=== PATIENT | female | born 1970 | race Caucasian/White ===

== ENCOUNTER 2017-05-27 10:30 | Emergency (ER) | payer MEDICAID ==
[~2017-05-27] VITALS: Ht 167.6 cm; Wt 85.0 kg
[2017-05-27] MEDS ORDERED: SODIUM CHLORIDE 0.9% 1,000 ML IV ONE (11:04)
[2017-05-27] MEDS ORDERED: KETOROLAC 30MG/ML VIAL IV ONE (11:15)
[2017-05-27 12:02] LABS: CLARITY URINE TURBID (CLEAR); COLOR URINE DARK YELLOW (YELLOW); KETONES URINE 1+ (NEGATIVE); LEUKOCYTE ESTERASE URINE 2+ (NEGATIVE); NITRITE URINE POSITIVE (NEGATIVE); OCCULT BLOOD URINE NEGATIVE (NEGATIVE); PH URINE 8.5 (4.5-8.0); PROTEIN URINE TRACE (NEGATIVE); SPECIFIC GRAVITY URINE 1.033 (1.005-1.030)
[2017-05-27 12:21] LABS: *AMPHETAMINES SCREEN URINE NEGATIVE (NEGATIVE); *BARBITURATES SCREEN URINE NEGATIVE (NEGATIVE); *BENZODIAZEPINES SCREEN URINE NEGATIVE (NEGATIVE); *COCAINE SCREEN URINE NEGATIVE (NEGATIVE); CANNABINOID URINE SCREEN NEGATIVE (NEGATIVE); METHADONE URINE SCREEN NEGATIVE (NEGATIVE); PHENCYCLIDINE URINE SCREEN NEGATIVE (NEGATIVE)
[2017-05-27 12:26] LABS: BASOPHILS % 0.5 % (0.0-2.0); EOSINOPHILS % 0.2 % (0.0-5.0); LYMPHOCYTES % 10.4 % (20.0-50.0); MEAN CORPUSCULAR HEMOGLOBIN 25.4 pg (28.0-32.0); MEAN CORPUSCULAR VOLUME 78.5 fL (81.0-99.0); MEAN PLATELET VOLUME 8.2 fl (7.4-10.4); NEUTROPHILS % 80.9 % (40.0-76.0); PLATELET 314 x1000/uL (130-400); RED BLOOD CELL COUNT 4.71 mill/uL (4.2-5.4); RED CELL DISTRIBUTION WIDTH 16.7 % (11.6-14.6)
[2017-05-27 12:32] LABS: INR 1.2; PROTHROMBIN TIME 12.5 sec (9.4-11.6)
[2017-05-27 12:34] LABS: OPIATES URINE SCREEN PRESUMTIVE POSITIVE (NEGATIVE)
[2017-05-27 12:40] LABS: CARBON DIOXIDE 26 mEq/L (21-32); CHLORIDE 104 mEq/L (98-107)
[2017-05-27] MEDS ORDERED: MORPHINE SULFATE 2 MG/ML CPJ (NOT FOR IM USE) IV ONE ×2 (12:45→14:30)
[2017-05-27 12:54] LABS: HCG SCREEN NEGATIVE
[2017-05-27] MEDS ORDERED: TRAMADOL 50MG TABLET PO ONE (14:00)
[2017-05-27] MEDS ORDERED: CEFTRIAXONE SODIUM 250 MG/VIAL IM ONE (14:00)
[2017-05-27 14:41] VITALS: BP 110/64
== END 2017-05-27 16:40 | disposition home or self-care (01) ==
LOC: ER 10:54
DX: N39.0 Urinary tract infection, site not specified (principal); M79.604 Pain in right leg; M79.605 Pain in left leg; G82.20 Paraplegia, unspecified; Z76.5 Malingerer [conscious simulation]; Z93.6 Other artificial openings of urinary tract status; Z86.718 Personal history of other venous thrombosis and embolism
CPT/HCPCS: 36415; 80053; 80305; 81001; 84703; 85025; 85610; 87086; 93970; 96361; 96372; 96374; 96375; 96376; 99285; J0696; J1885; J2270; J7030

== ENCOUNTER 2018-12-23 16:25 | Emergency (ER) | payer MEDICAID ==
[~2018-12-23] VITALS: Ht 160 cm; Wt 73.0 kg
[~2018-12-23 16:25] MED LIST: BACL20TA MT; DOCU-272 PO; DULO60CA63 MT; GABA-290 MT; OXYC-93 MT; RIVA20TA PO
[2018-12-23] MEDS ORDERED: MORPHINE SULFATE 4 MG/ML CPJ (NOT FOR IM USE) IV STA (18:44)
[2018-12-23] MEDS ORDERED: SODIUM CHLORIDE 0.9% 1,000 ML IV ONE (18:44)
[2018-12-23] MEDS ORDERED: ONDANSETRON HCL 4MG/2ML INJ IV STA (18:44)
[2018-12-23 19:16] LABS: BASOPHILS % 1.1 % (0.0-2.0); EOSINOPHILS % 2.8 % (0.0-5.0); LYMPHOCYTES % 18.7 % (20.0-50.0); MEAN CORPUSCULAR VOLUME 77.1 fL (81.0-99.0); MEAN PLATELET VOLUME 8.4 fl (7.4-10.4); NEUTROPHILS % 69.4 % (40.0-76.0); PLATELET 246 x1000/uL (130-400); RED BLOOD CELL COUNT 4.42 mill/uL (4.2-5.4); RED CELL DISTRIBUTION WIDTH 17.6 % (11.6-14.6)
[2018-12-23 19:20] LABS: CHLORIDE 106 mEq/L (98-107)
[2018-12-23 19:21] LABS: INR 1.1; PROTHROMBIN TIME 11.6 sec (9.6-11.0)
[2018-12-23 19:27] LABS: CLARITY URINE CLOUDY (CLEAR); COLOR URINE YELLOW (YELLOW); KETONES URINE NEGATIVE (NEGATIVE); LEUKOCYTE ESTERASE URINE 3+ (NEGATIVE); NITRITE URINE NEGATIVE (NEGATIVE); OCCULT BLOOD URINE 2+ (NEGATIVE); PH URINE 6.5 (4.5-8.0); PROTEIN URINE TRACE (NEGATIVE); SPECIFIC GRAVITY URINE 1.015 (1.005-1.030)
[2018-12-23] MEDS ORDERED: DIPHENHYDRAMINE 25MG CAPSULE PO ONE (19:45)
[2018-12-23 20:57] VITALS: BP 123/71
== END 2018-12-23 20:58 | disposition home or self-care (01) ==
LOC: ER 16:25
DX: N30.90 Cystitis, unspecified without hematuria (principal); G82.20 Paraplegia, unspecified; G89.29 Other chronic pain; R00.0 Tachycardia, unspecified; Z98.890 Other specified postprocedural states; Z79.899 Other long term (current) drug therapy
CPT/HCPCS: 36415; 80053; 81003; 83605; 83690; 85025; 85610; 87040; 87077; 87086; 87186; 96374; 96375; 99283; J2270; J2405; J7030; Q0163; A4315

== ENCOUNTER 2019-02-18 13:50 | Emergency (ER) | payer MEDICAID ==
[~2019-02-18] VITALS: Ht 167.6 cm; Wt 90.0 kg
[~2019-02-18 13:50] MED LIST changes: -DULO60CA63 MT; +DULO60CA64 MT
[2019-02-18] MEDS ORDERED: KETOROLAC 30MG/ML VIAL IV STA (15:27)
[2019-02-18 16:03] LABS: CHLORIDE 108 mEq/L (98-107)
[2019-02-18 16:05] LABS: BASOPHILS % 0.4 % (0.0-2.0); EOSINOPHILS % 1.5 % (0.0-5.0); HEMOGLOBIN. 12.4 g/dL (12.0-16.0); LYMPHOCYTES % 13.8 % (20.0-50.0); MEAN CORPUSCULAR HEMOGLOBIN 25.9 pg (28.0-32.0); MEAN CORPUSCULAR VOLUME 79.3 fL (81.0-99.0); MONOCYTES % 7.3 % (2.0-8.0); PLATELET 190 x1000/uL (130-400); RED BLOOD CELL COUNT 4.79 mill/uL (4.2-5.4); RED CELL DISTRIBUTION WIDTH 16.3 % (11.6-14.6)
[2019-02-18 19:37] VITALS: BP 142/59
== END 2019-02-18 19:38 | disposition home or self-care (01) ==
LOC: ER 13:50
DX: M79.2 Neuralgia and neuritis, unspecified (principal); I11.9 Hypertensive heart disease without heart failure; Z88.6 Allergy status to analgesic agent; Z99.3 Dependence on wheelchair
CPT/HCPCS: 36415; 70450; 80053; 85025; 93970; 96374; 99284; J1885

== ENCOUNTER 2019-02-20 15:44 | Emergency (ER) | payer MEDICAID ==
[~2019-02-20] VITALS: Ht 170.2 cm; Wt 86.0 kg
[2019-02-20] MEDS ORDERED: KETOROLAC 60MG/2ML VIAL IM ONE (19:30)
[2019-02-20] MEDS ORDERED: GABAPENTIN 300MG CAPSULE PO ONE (19:30)
[2019-02-20] MEDS ORDERED: MORPHINE SULFATE 10 MG/ML CPJ IM ONE (20:15)
[2019-02-20 22:30] VITALS: BP 135/76
== END 2019-02-20 22:30 | disposition home or self-care (01) ==
LOC: ER 15:44
DX: M79.669 Pain in unspecified lower leg (principal); G62.9 Polyneuropathy, unspecified; F11.20 Opioid dependence, uncomplicated; I10 Essential (primary) hypertension; Z98.890 Other specified postprocedural states; Z79.899 Other long term (current) drug therapy; Z88.6 Allergy status to analgesic agent
CPT/HCPCS: 96372; 99283; J1885; J2270; Z7610

== ENCOUNTER 2019-02-27 18:03 | Emergency (ER) | payer MEDICAID ==
[~2019-02-27] VITALS: Ht 167.6 cm; Wt 101.0 kg
[2019-02-27] MEDS ORDERED: DIPHENHYDRAMINE 50MG/ML VIAL IV ONE (22:00)
[2019-02-27] MEDS ORDERED: MORPHINE SULFATE 10 MG/ML CPJ IV ONE (22:00)
[2019-02-27] MEDS ORDERED: KETOROLAC 30MG/ML VIAL IV ONE (22:00)
[2019-02-27 22:42] LABS: CLARITY URINE CLEAR (CLEAR); COLOR URINE YELLOW (YELLOW); KETONES URINE NEGATIVE (NEGATIVE); LEUKOCYTE ESTERASE URINE 1+ (NEGATIVE); NITRITE URINE POSITIVE (NEGATIVE); OCCULT BLOOD URINE NEGATIVE (NEGATIVE); PROTEIN URINE NEGATIVE (NEGATIVE); SPECIFIC GRAVITY URINE 1.008 (1.005-1.030)
[2019-02-28 00:31] VITALS: BP 105/65
== END 2019-02-28 01:48 | disposition home or self-care (01) ==
LOC: ER 18:03
DX: G89.29 Other chronic pain (principal); I11.9 Hypertensive heart disease without heart failure; G82.20 Paraplegia, unspecified; Z88.6 Allergy status to analgesic agent
CPT/HCPCS: 81003; 87077; 87086; 87186; 96374; 96375; 99283; J1200; J1885; J2270

== ENCOUNTER 2019-03-23 10:32 | Inpatient (IN) | payer MEDICAID ==
[~2019-03-23] VITALS: Ht 160 cm; Wt 92.5 kg
[2019-03-23] MEDS ORDERED: ONDANSETRON HCL 4MG/2ML INJ IV STA (11:13)
[2019-03-23] MEDS ORDERED: MORPHINE SULFATE 4 MG/ML CPJ (NOT FOR IM USE) IV STA (11:13)
[2019-03-23] MEDS ORDERED: DIPHENHYDRAMINE 25MG CAPSULE PO ONE (11:15)
[2019-03-23 11:59] LABS: CHLORIDE 106 mEq/L (98-107)
[2019-03-23 12:00] LABS: BASOPHILS % 0.5 % (0.0-2.0); EOSINOPHILS % 0.3 % (0.0-5.0); HEMATOCRIT. 37.4 % (36.0-48.0); HEMOGLOBIN. 12.4 g/dL (12.0-16.0); LYMPHOCYTES % 12.3 % (20.0-50.0); MEAN CORPUSCULAR HEMOGLOBIN 26.2 pg (28.0-32.0); MEAN CORPUSCULAR VOLUME 78.9 fL (81.0-99.0); MEAN PLATELET VOLUME 8.9 fl (7.4-10.4); MONOCYTES % 6.5 % (2.0-8.0); NEUTROPHILS % 80.4 % (40.0-76.0); PLATELET 319 x1000/uL (130-400); RED BLOOD CELL COUNT 4.74 mill/uL (4.2-5.4); RED CELL DISTRIBUTION WIDTH 15.6 % (11.6-14.6)
[2019-03-23] MEDS ORDERED: KETOROLAC 15MG/ML VIAL IV ONE (12:30)
[2019-03-23] MEDS ORDERED: MORPHINE SULFATE 4 MG/ML CPJ (NOT FOR IM USE) IV ONE (12:30)
[2019-03-23 12:54] LABS: CLARITY URINE CLOUDY (CLEAR); COLOR URINE YELLOW (YELLOW); KETONES URINE TRACE (NEGATIVE); LEUKOCYTE ESTERASE URINE 2+ (NEGATIVE); NITRITE URINE NEGATIVE (NEGATIVE); OCCULT BLOOD URINE 2+ (NEGATIVE); PROTEIN URINE 2+ (NEGATIVE); SPECIFIC GRAVITY URINE 1.007 (1.005-1.030)
[2019-03-23] MEDS ORDERED: LORAZEPAM 2MG/ML CPJ IV ONE (13:15)
[2019-03-23] MEDS ORDERED: CEFTRIAXONE 2 G PREMIX 50 ML IV ONE (13:45)
[2019-03-23 16:40] VITALS: BP 125/86
[2019-03-23] MEDS ORDERED: CLON2TAB21 PO (16:40)
[2019-03-23] MEDS ORDERED: INFLUENZA VIRUS VACCINE(AFLURIA) 0.5ML SYR IM ONE (17:30)
[2019-03-23] MEDS ORDERED: ONDANSETRON HCL 4MG/2ML INJ IV PRN (18:15)
[2019-03-23] MEDS: HYDROMORPHONE HCL/PF 2MG/ML CPJ IV PRN ×2 (18:29→22:27)
[2019-03-23] MEDS: SODIUM CHLORIDE 0.9% 1,000 ML IV SCH (18:40)
[2019-03-23] MEDS: DIPHENHYDRAMINE 50MG/ML VIAL IV PRN (18:40)
[2019-03-23] MEDS ORDERED: POTASSIUM CHLORIDE 20MEQ TABLET SR PO SCH (19:30)
[2019-03-23 20:00] VITALS: BP 129/81
[2019-03-23] MEDS: RIVAROXABAN 20 MG TABLET PO SCH (20:06)
[2019-03-23] MEDS: DOCUSATE SODIUM 100MG CAPSULE PO SCH (20:07)
[2019-03-23] MEDS ORDERED: CLONAZEPAM 1MG TABLET PO SCH (21:00)
[2019-03-23] MEDS: GABAPENTIN 300MG CAPSULE PO SCH (21:33)
[2019-03-23] MEDS: LORAZEPAM 1MG TABLET PO PRN (21:34)
[2019-03-23] MEDS: BACLOFEN 10MG TABLET PO SCH (21:34)
[2019-03-24] VITALS: BP 103/60
[2019-03-24] MEDS: DIPHENHYDRAMINE 50MG/ML VIAL IV PRN ×4 (00:49→22:32)
[2019-03-24] MEDS: HYDROMORPHONE HCL/PF 2MG/ML CPJ IV PRN ×6 (02:30→22:25)
[2019-03-24 04:00] VITALS: BP 94/54
[2019-03-24] MEDS: GABAPENTIN 300MG CAPSULE PO SCH ×3 (06:26→21:50)
[2019-03-24] MEDS: BACLOFEN 10MG TABLET PO SCH ×3 (06:26→21:50)
[2019-03-24] MEDS: DULOXETINE HCL 60MG DR CAPSULE PO SCH (08:14)
[2019-03-24] MEDS: CEFTRIAXONE 1,000 MG in DEXTROSE 5% WATER 50 ML IV SCH (08:14)
[2019-03-24] MEDS: DOCUSATE SODIUM 100MG CAPSULE PO SCH ×2 (08:14→16:31)
[2019-03-24] MEDS ORDERED: ENOXAPARIN 40MG/0.4ML SYR SUBCUT SCH (09:00)
[2019-03-24 09:19] LABS: BASOPHILS % 1.1 % (0.0-2.0); EOSINOPHILS % 3.9 % (0.0-5.0); HEMATOCRIT. 34.8 % (36.0-48.0); HEMOGLOBIN. 11.4 g/dL (12.0-16.0); LYMPHOCYTES % 25.6 % (20.0-50.0); MEAN CORPUSCULAR HEMOGLOBIN 26.2 pg (28.0-32.0); MEAN CORPUSCULAR VOLUME 79.9 fL (81.0-99.0); MEAN PLATELET VOLUME 8.5 fl (7.4-10.4); NEUTROPHILS % 58.4 % (40.0-76.0); PLATELET 275 x1000/uL (130-400); RED BLOOD CELL COUNT 4.35 mill/uL (4.2-5.4)
[2019-03-24 09:41] LABS: CHLORIDE 111 mEq/L (98-107)
[2019-03-24 16:00] VITALS: BP 100/61
[2019-03-24] MEDS: RIVAROXABAN 20 MG TABLET PO SCH (16:32)
[2019-03-24] MEDS ORDERED: OXYC20TA71 PO (16:46)
[2019-03-24 20:00] VITALS: BP 125/86
[2019-03-25] VITALS: BP 101/61
[2019-03-25] MEDS: HYDROMORPHONE HCL/PF 2MG/ML CPJ IV PRN ×5 (03:46→21:16)
[2019-03-25 04:00] VITALS: BP 108/50
[2019-03-25] MEDS: BACLOFEN 10MG TABLET PO SCH ×3 (06:04→21:13)
[2019-03-25] MEDS: LORAZEPAM 1MG TABLET PO PRN (06:04)
[2019-03-25] MEDS: GABAPENTIN 300MG CAPSULE PO SCH ×3 (06:04→21:13)
[2019-03-25 08:00] VITALS: BP 108/68
[2019-03-25] MEDS: CEFTRIAXONE 1,000 MG in DEXTROSE 5% WATER 50 ML IV SCH (08:27)
[2019-03-25] MEDS: DULOXETINE HCL 60MG DR CAPSULE PO SCH (08:27)
[2019-03-25] MEDS: DOCUSATE SODIUM 100MG CAPSULE PO SCH ×2 (08:27→17:00)
[2019-03-25 12:00] VITALS: BP 116/50
[2019-03-25] MEDS ORDERED: ACETAMINOPHEN 325MG TABLET PO PRN (15:00)
[2019-03-25] MEDS: DIPHENHYDRAMINE 50MG/ML VIAL IV PRN ×2 (15:09→21:15)
[2019-03-25 16:00] VITALS: BP 138/72
[2019-03-25] MEDS: RIVAROXABAN 20 MG TABLET PO SCH (17:11)
[2019-03-25] MEDS: CEFAZOLIN 1000MG PREMIX 50 ML IV SCH (18:32)
[2019-03-25 20:00] VITALS: BP 125/71
[2019-03-26] VITALS: BP 98/45
[2019-03-26] MEDS: SODIUM CHLORIDE 0.9% 1,000 ML IV SCH ×2 (00:29→17:24)
[2019-03-26] MEDS: HYDROMORPHONE HCL/PF 2MG/ML CPJ IV PRN ×6 (01:21→22:30)
[2019-03-26] MEDS: CEFAZOLIN 1000MG PREMIX 50 ML IV SCH ×3 (01:31→17:27)
[2019-03-26] MEDS: DIPHENHYDRAMINE 50MG/ML VIAL IV PRN ×5 (03:14→21:13)
[2019-03-26 04:00] VITALS: BP 147/58
[2019-03-26] MEDS: GABAPENTIN 300MG CAPSULE PO SCH ×3 (05:22→21:07)
[2019-03-26] MEDS: BACLOFEN 10MG TABLET PO SCH ×3 (05:22→21:07)
[2019-03-26] MEDS: DOCUSATE SODIUM 100MG CAPSULE PO SCH ×2 (08:33→17:00)
[2019-03-26] MEDS: DULOXETINE HCL 60MG DR CAPSULE PO SCH (08:33)
[2019-03-26 14:21] LABS: BASOPHILS % 1.1 % (0.0-2.0); EOSINOPHILS % 4.5 % (0.0-5.0); HEMATOCRIT. 36.5 % (36.0-48.0); HEMOGLOBIN. 11.7 g/dL (12.0-16.0); LYMPHOCYTES % 15.5 % (20.0-50.0); MEAN CORPUSCULAR HEMOGLOBIN 25.9 pg (28.0-32.0); MEAN CORPUSCULAR VOLUME 80.7 fL (81.0-99.0); MEAN PLATELET VOLUME 8.9 fl (7.4-10.4); MONOCYTES % 8.5 % (2.0-8.0); NEUTROPHILS % 70.4 % (40.0-76.0); PLATELET 261 x1000/uL (130-400); RED BLOOD CELL COUNT 4.53 mill/uL (4.2-5.4); RED CELL DISTRIBUTION WIDTH 16.5 % (11.6-14.6)
[2019-03-26 14:37] LABS: CHLORIDE 109 mEq/L (98-107)
[2019-03-26] MEDS: RIVAROXABAN 20 MG TABLET PO SCH (17:26)
[2019-03-26 20:00] VITALS: BP 112/64
[2019-03-27] VITALS: BP 116/68
[2019-03-27] MEDS: CEFAZOLIN 1000MG PREMIX 50 ML IV SCH ×2 (02:41→09:59)
[2019-03-27] MEDS: HYDROMORPHONE HCL/PF 2MG/ML CPJ IV PRN ×3 (02:41→11:32)
[2019-03-27] MEDS: DIPHENHYDRAMINE 50MG/ML VIAL IV PRN ×2 (03:34→09:59)
[2019-03-27 04:00] VITALS: BP 104/60
[2019-03-27] MEDS: GABAPENTIN 300MG CAPSULE PO SCH ×2 (06:04→13:13)
[2019-03-27] MEDS: BACLOFEN 10MG TABLET PO SCH ×2 (06:04→13:13)
[2019-03-27 08:00] VITALS: BP 113/67
[2019-03-27] MEDS: DULOXETINE HCL 60MG DR CAPSULE PO SCH (09:58)
[2019-03-27] MEDS: DOCUSATE SODIUM 100MG CAPSULE PO SCH (09:58)
[2019-03-27 12:00] VITALS: BP 107/61
[2019-03-27] MEDS: LORAZEPAM 1MG TABLET PO PRN (13:50)
[2019-03-27 15:32] VITALS: BP 107/61
[2019-03-27] MEDS: SODIUM CHLORIDE 0.9% 1,000 ML IV SCH (15:38)
[2019-03-27 16:00] VITALS: BP 101/48
== END 2019-03-27 16:43 | disposition home health service (06) | DRG 463 ==
LOC: ER 10:32 → 6EST 14:07 → EDBEDREQTM 14:13 → ENRESERV 15:31
PROVIDERS: ADMIT Internal Medicine; ATTEND Internal Medicine
DX: N39.0 Urinary tract infection, site not specified (principal); G82.20 Paraplegia, unspecified; G62.9 Polyneuropathy, unspecified; E87.6 Hypokalemia; N31.9 Neuromuscular dysfunction of bladder, unspecified; M79.604 Pain in right leg; M79.605 Pain in left leg; I10 Essential (primary) hypertension; B96.1 Klebsiella pneumoniae [K. pneumoniae] as the cause of diseases classified elsewhere; G89.29 Other chronic pain; Z88.6 Allergy status to analgesic agent; Z86.718 Personal history of other venous thrombosis and embolism; Z98.891 History of uterine scar from previous surgery; Z79.01 Long term (current) use of anticoagulants; Z79.899 Other long term (current) drug therapy; Z76.5 Malingerer [conscious simulation]
CPT/HCPCS: 36415; 51702; 72141; 72148; 80048; 81003; 87077; 87186; 90686; 96365; 96375; 96376; 97162; 99285; J0690; J0696; J1170; J1200; J1885; J2060; J2270; J2405; J7030; J7060; Q0163

== ENCOUNTER 2019-05-08 12:10 | Emergency (ER) | payer MEDICAID ==
[~2019-05-08] VITALS: Ht 160 cm; Wt 87.0 kg
[~2019-05-08 12:10] MED LIST changes: +CLON2TAB21 PO; +OXYC20TA71 PO
[2019-05-08] MEDS ORDERED: MORPHINE SULFATE 10 MG/ML CPJ IV ONE (13:15)
[2019-05-08] MEDS ORDERED: ONDANSETRON HCL 4MG/2ML INJ IV ONE (13:15)
[2019-05-08] MEDS ORDERED: DIPHENHYDRAMINE 50MG/ML VIAL IV ONE (13:15)
[2019-05-08 13:30] LABS: CLARITY URINE CLEAR (CLEAR); COLOR URINE YELLOW (YELLOW); KETONES URINE NEGATIVE (NEGATIVE); LEUKOCYTE ESTERASE URINE NEGATIVE (NEGATIVE); NITRITE URINE POSITIVE (NEGATIVE); OCCULT BLOOD URINE 3+ (NEGATIVE); PROTEIN URINE NEGATIVE (NEGATIVE); SPECIFIC GRAVITY URINE 1.009 (1.005-1.030)
[2019-05-08 14:12] LABS: BASOPHILS % 1.2 % (0.0-2.0); EOSINOPHILS % 3.6 % (0.0-5.0); HEMATOCRIT. 35.5 % (36.0-48.0); HEMOGLOBIN. 11.7 g/dL (12.0-16.0); LYMPHOCYTES % 26.3 % (20.0-50.0); MEAN CORPUSCULAR HEMOGLOBIN 26.5 pg (28.0-32.0); MEAN CORPUSCULAR VOLUME 80.3 fL (81.0-99.0); MEAN PLATELET VOLUME 8.5 fl (7.4-10.4); NEUTROPHILS % 60.9 % (40.0-76.0); PLATELET 202 x1000/uL (130-400); RED BLOOD CELL COUNT 4.42 mill/uL (4.2-5.4)
[2019-05-08 14:20] LABS: CHLORIDE 106 mEq/L (98-107)
[2019-05-08 14:22] LABS: *AMPHETAMINES SCREEN URINE NEGATIVE (NEGATIVE); *BARBITURATES SCREEN URINE NEGATIVE (NEGATIVE); *COCAINE SCREEN URINE NEGATIVE (NEGATIVE)
[2019-05-08 14:23] LABS: CANNABINOID URINE SCREEN NEGATIVE (NEGATIVE); METHADONE URINE SCREEN NEGATIVE (NEGATIVE); OPIATES URINE SCREEN NEGATIVE (NEGATIVE); PHENCYCLIDINE URINE SCREEN NEGATIVE (NEGATIVE)
[2019-05-08 14:31] LABS: HCG SCREEN NEGATIVE
[2019-05-08 14:43] LABS: *BENZODIAZEPINES SCREEN URINE PRESUMTIVE POSITIVE (NEGATIVE)
[2019-05-08] MEDS ORDERED: CEFTRIAXONE 1 G PREMIX 50 ML IV ONE (14:45)
[2019-05-08 17:02] VITALS: BP 120/65
== END 2019-05-08 17:20 | disposition home or self-care (01) ==
LOC: ER 12:10
DX: M79.604 Pain in right leg (principal); M79.605 Pain in left leg; N39.0 Urinary tract infection, site not specified; I10 Essential (primary) hypertension; G82.20 Paraplegia, unspecified; Z98.890 Other specified postprocedural states; Z79.899 Other long term (current) drug therapy; Z88.6 Allergy status to analgesic agent
CPT/HCPCS: 36415; 71045; 80053; 80305; 81003; 81025; 83880; 84484; 84703; 85025; 87086; 93005; 93970; 96374; 96375; 99284; J0696; J1200; J2270; J2405

== ENCOUNTER 2019-07-23 16:56 | Inpatient (IN) | payer MEDICAID ==
[~2019-07-23] VITALS: Ht 162.6 cm; Wt 69.9 kg
[2019-07-23] MEDS ORDERED: SODIUM CHLORIDE 0.9% 1,000 ML IV ONE (18:56)
[2019-07-23] MEDS ORDERED: MORPHINE SULFATE 4 MG/ML CPJ (NOT FOR IM USE) IV STA (18:56)
[2019-07-23] MEDS ORDERED: ONDANSETRON HCL 4MG/2ML INJ IV STA (18:56)
[2019-07-23] MEDS ORDERED: DIPHENHYDRAMINE 50MG/ML VIAL IV ONE (19:00)
[2019-07-23 19:17] LABS: HEMATOCRIT. 35.7 % (36.0-48.0); MEAN CORPUSCULAR HEMOGLOBIN 26.5 pg (28.0-32.0); MEAN CORPUSCULAR VOLUME 78.5 fL (81.0-99.0); MEAN PLATELET VOLUME 9.4 fl (7.4-10.4); PLATELET 245 x1000/uL (130-400); RED BLOOD CELL COUNT 4.55 mill/uL (4.2-5.4); RED CELL DISTRIBUTION WIDTH 15.1 % (11.6-14.6)
[2019-07-23 19:20] LABS: CHLORIDE 101 mEq/L (98-107)
[2019-07-23 19:33] LABS: CLARITY URINE TURBID (CLEAR); COLOR URINE YELLOW (YELLOW); KETONES URINE TRACE (NEGATIVE); LEUKOCYTE ESTERASE URINE 3+ (NEGATIVE); NITRITE URINE NEGATIVE (NEGATIVE); OCCULT BLOOD URINE NEGATIVE (NEGATIVE); PH URINE >=9.0 (4.5-8.0); PROTEIN URINE 2+ (NEGATIVE); SPECIFIC GRAVITY URINE 1.016 (1.005-1.030)
[2019-07-23] MEDS ORDERED: MORPHINE SULFATE 4 MG/ML CPJ (NOT FOR IM USE) IV ONE (20:00)
[2019-07-23 20:05] LABS: PLATELET ESTIMATE NORMAL
[2019-07-23] MEDS ORDERED: CEFTRIAXONE 2 G PREMIX 50 ML IV ONE (20:30)
[2019-07-23] MEDS ORDERED: POTASSIUM CHLORIDE INJ 40 MEQ in DEXT 5% WATER 250 ML IV ONE (20:30)
[2019-07-24] MEDS ORDERED: KETOROLAC 15MG/ML VIAL IV ONE
[2019-07-24] MEDS ORDERED: CEFTRIAXONE 2 G PREMIX 50 ML IV SCH (02:15)
[2019-07-24 05:00] VITALS: BP 127/75
[2019-07-24] MEDS ORDERED: GABA800T97 PO (05:44)
[2019-07-24] MEDS ORDERED: HYDROCODONE/ACETAMINOPHEN 5/325MG TABLET PO PRN (07:00)
[2019-07-24] MEDS ORDERED: DIPHENHYDRAMINE 25MG CAPSULE PO PRN (07:00)
[2019-07-24 08:00] VITALS: BP 111/71
[2019-07-24] MEDS: HYDROMORPHONE HCL/PF 2MG/ML CPJ IV PRN ×4 (08:42→21:31)
[2019-07-24] MEDS ORDERED: ENOXAPARIN 40MG/0.4ML SYR SUBCUT SCH (09:00)
[2019-07-24 10:42] LABS: BASOPHILS % 1.4 % (0.0-2.0); EOSINOPHILS % 0.3 % (0.0-5.0); HEMOGLOBIN. 11.3 g/dL (12.0-16.0); LYMPHOCYTES % 8.2 % (20.0-50.0); MEAN CORPUSCULAR HEMOGLOBIN 26.8 pg (28.0-32.0); MEAN CORPUSCULAR VOLUME 78.3 fL (81.0-99.0); MONOCYTES % 10.1 % (2.0-8.0); PLATELET 231 x1000/uL (130-400); RED BLOOD CELL COUNT 4.21 mill/uL (4.2-5.4)
[2019-07-24 10:47] LABS: CHLORIDE 106 mEq/L (98-107)
[2019-07-24 12:00] VITALS: BP 119/74
[2019-07-24] MEDS ORDERED: LIDOCAINE HCL/PF 1% 10 MG/ML 30ML VIAL INFIL NR (12:30)
[2019-07-24] MEDS ORDERED: POTASSIUM CHLORIDE 20MEQ/PACKET PO NR (13:00)
[2019-07-24] MEDS: BACLOFEN 10MG TABLET PO SCH (13:39)
[2019-07-24] MEDS: GABAPENTIN 300MG CAPSULE PO SCH ×2 (13:53→21:17)
[2019-07-24] MEDS ORDERED: BACLOFEN 20MG TABLET PO SCH (14:00)
[2019-07-24] MEDS: DIPHENHYDRAMINE 50MG/ML VIAL IV PRN ×2 (14:27→23:15)
[2019-07-24 16:00] VITALS: BP 124/79
[2019-07-24] MEDS: CLONAZEPAM 1MG TABLET PO SCH (16:31)
[2019-07-24 20:00] VITALS: BP 98/68
[2019-07-25] VITALS: BP 98/61
[2019-07-25] MEDS: CEFTRIAXONE 1 G PREMIX 50 ML IV SCH (01:11)
[2019-07-25 04:00] VITALS: BP 103/69
[2019-07-25] MEDS: HYDROMORPHONE HCL/PF 2MG/ML CPJ IV PRN ×5 (06:39→22:57)
[2019-07-25] MEDS: GABAPENTIN 300MG CAPSULE PO SCH ×3 (06:39→22:07)
[2019-07-25 08:00] VITALS: BP 117/60
[2019-07-25] MEDS: CLONAZEPAM 1MG TABLET PO SCH ×2 (08:08→16:42)
[2019-07-25] MEDS: DULOXETINE HCL 60MG DR CAPSULE PO SCH (08:08)
[2019-07-25] MEDS: DIPHENHYDRAMINE 50MG/ML VIAL IV PRN ×2 (08:08→14:53)
[2019-07-25 12:00] VITALS: BP 102/62
[2019-07-25] MEDS: BACLOFEN 10MG TABLET PO SCH (12:57)
[2019-07-25] MEDS ORDERED: LORAZEPAM 0.5MG TABLET PO PRN (14:30)
[2019-07-25 16:00] VITALS: BP 99/64
[2019-07-25] MEDS: RIVAROXABAN 20 MG TABLET PO SCH (16:42)
[2019-07-25 20:00] VITALS: BP 101/68
[2019-07-26] VITALS: BP 95/49
[2019-07-26] MEDS: DIPHENHYDRAMINE 50MG/ML VIAL IV PRN ×3 (00:36→18:01)
[2019-07-26] MEDS: CEFTRIAXONE 1 G PREMIX 50 ML IV SCH (00:42)
[2019-07-26 04:00] VITALS: BP 113/73
[2019-07-26] MEDS: HYDROMORPHONE HCL/PF 2MG/ML CPJ IV PRN ×5 (04:41→21:20)
[2019-07-26] MEDS: GABAPENTIN 300MG CAPSULE PO SCH ×3 (06:30→21:20)
[2019-07-26 06:56] LABS: BASOPHILS % 0.8 % (0.0-2.0); EOSINOPHILS % 1.9 % (0.0-5.0); HEMATOCRIT. 31.5 % (36.0-48.0); HEMOGLOBIN. 10.4 g/dL (12.0-16.0); LYMPHOCYTES % 14.9 % (20.0-50.0); MEAN CORPUSCULAR HEMOGLOBIN 25.9 pg (28.0-32.0); MEAN CORPUSCULAR VOLUME 78.4 fL (81.0-99.0); MEAN PLATELET VOLUME 8.9 fl (7.4-10.4); MONOCYTES % 12.3 % (2.0-8.0); NEUTROPHILS % 70.1 % (40.0-76.0); PLATELET 284 x1000/uL (130-400); RED BLOOD CELL COUNT 4.02 mill/uL (4.2-5.4); RED CELL DISTRIBUTION WIDTH 15.5 % (11.6-14.6)
[2019-07-26 07:40] LABS: CHLORIDE 105 mEq/L (98-107)
[2019-07-26 08:00] VITALS: BP 105/61
[2019-07-26] MEDS: CLONAZEPAM 1MG TABLET PO SCH ×2 (08:27→16:54)
[2019-07-26] MEDS: DULOXETINE HCL 60MG DR CAPSULE PO SCH (08:29)
[2019-07-26 12:00] VITALS: BP 109/62
[2019-07-26] MEDS: BACLOFEN 10MG TABLET PO SCH (14:28)
[2019-07-26 16:00] VITALS: BP 104/65
[2019-07-26] MEDS: RIVAROXABAN 20 MG TABLET PO SCH (16:53)
[2019-07-26 20:00] VITALS: BP 100/66
[2019-07-27] VITALS: BP 106/60
[2019-07-27] MEDS: DIPHENHYDRAMINE 50MG/ML VIAL IV PRN ×4 (01:08→23:58)
[2019-07-27] MEDS: CEFTRIAXONE 1 G PREMIX 50 ML IV SCH (02:09)
[2019-07-27] MEDS: HYDROMORPHONE HCL/PF 2MG/ML CPJ IV PRN ×5 (02:10→20:48)
[2019-07-27 04:00] VITALS: BP 114/64
[2019-07-27] MEDS: GABAPENTIN 300MG CAPSULE PO SCH ×3 (06:04→22:06)
[2019-07-27 06:07] LABS: BASOPHILS % 1.3 % (0.0-2.0); EOSINOPHILS % 2.5 % (0.0-5.0); HEMATOCRIT. 34.6 % (36.0-48.0); HEMOGLOBIN. 11.3 g/dL (12.0-16.0); LYMPHOCYTES % 17.6 % (20.0-50.0); MEAN CORPUSCULAR HEMOGLOBIN 25.8 pg (28.0-32.0); MEAN CORPUSCULAR VOLUME 79.3 fL (81.0-99.0); MEAN PLATELET VOLUME 9.1 fl (7.4-10.4); MONOCYTES % 9.2 % (2.0-8.0); NEUTROPHILS % 69.4 % (40.0-76.0); PLATELET 352 x1000/uL (130-400); RED BLOOD CELL COUNT 4.37 mill/uL (4.2-5.4); RED CELL DISTRIBUTION WIDTH 15.8 % (11.6-14.6)
[2019-07-27 06:37] LABS: CHLORIDE 105 mEq/L (98-107)
[2019-07-27 08:00] VITALS: BP 101/65
[2019-07-27] MEDS: DULOXETINE HCL 60MG DR CAPSULE PO SCH (08:28)
[2019-07-27] MEDS: CLONAZEPAM 1MG TABLET PO SCH ×2 (08:28→16:35)
[2019-07-27 12:00] VITALS: BP 99/70
[2019-07-27] MEDS: BACLOFEN 10MG TABLET PO SCH (14:22)
[2019-07-27 16:00] VITALS: BP 113/71
[2019-07-27] MEDS: RIVAROXABAN 20 MG TABLET PO SCH (16:36)
[2019-07-27 20:00] VITALS: BP 108/69
[2019-07-28] VITALS: BP 110/68
[2019-07-28] MEDS: DIPHENHYDRAMINE 50MG/ML VIAL IV PRN ×5 (00:04→16:53)
[2019-07-28] MEDS: HYDROMORPHONE HCL/PF 2MG/ML CPJ IV PRN ×5 (02:11→19:44)
[2019-07-28 04:00] VITALS: BP 109/67
[2019-07-28] MEDS: GABAPENTIN 300MG CAPSULE PO SCH ×3 (05:09→22:16)
[2019-07-28 06:02] LABS: EOSINOPHILS % 3.1 % (0.0-5.0); HEMATOCRIT. 33.7 % (36.0-48.0); HEMOGLOBIN. 11.2 g/dL (12.0-16.0); LYMPHOCYTES % 22.1 % (20.0-50.0); MEAN CORPUSCULAR HEMOGLOBIN 26.4 pg (28.0-32.0); MEAN CORPUSCULAR VOLUME 79.4 fL (81.0-99.0); MEAN PLATELET VOLUME 8.8 fl (7.4-10.4); MONOCYTES % 7.5 % (2.0-8.0); NEUTROPHILS % 66.3 % (40.0-76.0); PLATELET 382 x1000/uL (130-400); RED BLOOD CELL COUNT 4.25 mill/uL (4.2-5.4); RED CELL DISTRIBUTION WIDTH 15.5 % (11.6-14.6)
[2019-07-28 06:15] LABS: CHLORIDE 102 mEq/L (98-107)
[2019-07-28 08:00] VITALS: BP 113/62
[2019-07-28] MEDS: CLONAZEPAM 1MG TABLET PO SCH ×2 (08:35→16:53)
[2019-07-28] MEDS: DULOXETINE HCL 60MG DR CAPSULE PO SCH (08:35)
[2019-07-28] MEDS ORDERED: OXYC-93 MT (11:48)
[2019-07-28 12:00] VITALS: BP 101/62
[2019-07-28] MEDS: BACLOFEN 10MG TABLET PO SCH (14:37)
[2019-07-28 16:00] VITALS: BP 104/66
[2019-07-28] MEDS: RIVAROXABAN 20 MG TABLET PO SCH (16:53)
[2019-07-28 23:19] VITALS: BP 108/74
[2019-07-29] VITALS: BP 108/63
== END 2019-07-29 00:25 | disposition home health service (06) | DRG 364 ==
LOC: ER 16:56 → 6EST 07-24 00:44 → EDBEDREQTM 07-24 00:52 → EDBEDREQ 07-24 00:52 → ENRESERV 07-24 03:27
PROVIDERS: ADMIT Internal Medicine; ATTEND Internal Medicine
PROC: 0JBQ0ZZ Excision of Right Foot Subcutaneous Tissue and Fascia, Open Approach (ICD-10-PCS; principal; 2019-07-24)
PROC: 0JDR0ZZ Extraction of Left Foot Subcutaneous Tissue and Fascia, Open Approach (ICD-10-PCS; 2019-07-24)
PROC: 0HQNXZZ Repair Left Foot Skin, External Approach (ICD-10-PCS; 2019-07-24)
DX: L89.613 Pressure ulcer of right heel, stage 3 (principal); G82.20 Paraplegia, unspecified; L89.629 Pressure ulcer of left heel, unspecified stage; N12 Tubulo-interstitial nephritis, not specified as acute or chronic; E87.6 Hypokalemia; S91.115A Laceration without foreign body of left lesser toe(s) without damage to nail, initial encounter; G89.29 Other chronic pain; R74.0 Nonspecific elevation of levels of transaminase and lactic acid dehydrogenase [LDH]; M54.5 Low back pain; M47.816 Spondylosis without myelopathy or radiculopathy, lumbar region; L57.0 Actinic keratosis; F32.9 Major depressive disorder, single episode, unspecified; I10 Essential (primary) hypertension; X58.XXXA Exposure to other specified factors, initial encounter; Y93.89 Activity, other specified; Y92.89 Other specified places as the place of occurrence of the external cause; Z98.891 History of uterine scar from previous surgery; Y99.8 Other external cause status; Z88.5 Allergy status to narcotic agent
CPT/HCPCS: 36415; 72131; 80048; 80053; 81003; 85025; 87493; 93970; 96374; 99285; J0696; J1170; J1200; J1650; J1885; J2270; J2405; J3480; J3490; J7030; J7060

== ENCOUNTER 2019-08-30 15:35 | Emergency (ER) | payer MEDICAID ==
[~2019-08-30] VITALS: Ht 170.2 cm; Wt 80.0 kg
[~2019-08-30 15:35] MED LIST changes: -GABA-290 MT; +GABA800T97 PO
[2019-08-30] MEDS ORDERED: OXYCODONE HCL/ACETAMINOPHEN 5/325MG TABLET PO ONE (16:30)
[2019-08-30 20:20] VITALS: BP 124/74
== END 2019-08-30 20:20 | disposition home or self-care (01) ==
LOC: ER 15:35
DX: M79.605 Pain in left leg (principal); M79.604 Pain in right leg; I10 Essential (primary) hypertension; G82.20 Paraplegia, unspecified; Z98.890 Other specified postprocedural states; Z88.8 Allergy status to other drugs, medicaments and biological substances; Z79.899 Other long term (current) drug therapy
CPT/HCPCS: 93970; 99284

== ENCOUNTER 2020-02-25 16:21 | Inpatient (IN) | payer MEDICAID ==
[~2020-02-25] VITALS: Ht 160 cm; Wt 94.8 kg
[2020-02-25] MEDS ORDERED: SODIUM CHLORIDE 0.9% 1,000 ML IV ONE (17:07)
[2020-02-25] MEDS ORDERED: ONDANSETRON HCL 4MG/2ML INJ IV STA (17:07)
[2020-02-25] MEDS ORDERED: MORPHINE SULFATE 4 MG/ML CPJ (NOT FOR IM USE) IV STA (17:07)
[2020-02-25] MEDS ORDERED: PIPERACILLIN/TAZ 3.375G PREMIX 50 ML IV NR (17:15)
[2020-02-25] MEDS ORDERED: PIPERACILLIN/TAZOBACTAM 3.375GM/50ML PREMIX IV ONE (17:15)
[2020-02-25 17:24] LABS: BASOPHILS % 0.7 % (0.0-2.0); EOSINOPHILS % 2.8 % (0.0-5.0); HEMATOCRIT. 35.6 % (36.0-48.0); HEMOGLOBIN. 11.6 g/dL (12.0-16.0); LYMPHOCYTES % 14.7 % (20.0-50.0); MEAN CORPUSCULAR HEMOGLOBIN 25.5 pg (28.0-32.0); MEAN CORPUSCULAR VOLUME 78.6 fL (81.0-99.0); MEAN PLATELET VOLUME 8.5 fl (7.4-10.4); MONOCYTES % 8.2 % (2.0-8.0); NEUTROPHILS % 73.6 % (40.0-76.0); PLATELET 238 x1000/uL (130-400); RED BLOOD CELL COUNT 4.53 mill/uL (4.2-5.4); RED CELL DISTRIBUTION WIDTH 15.5 % (11.6-14.6)
[2020-02-25 17:29] LABS: CHLORIDE 107 mEq/L (98-107)
[2020-02-25 17:37] LABS: HCG SCREEN NEGATIVE
[2020-02-25] MEDS ORDERED: POTASSIUM CHLORIDE 20MEQ TABLET SR PO ONE (18:30)
[2020-02-25 19:29] LABS: CLARITY URINE CLOUDY (CLEAR); COLOR URINE DARK YELLOW (YELLOW); KETONES URINE TRACE (NEGATIVE); LEUKOCYTE ESTERASE URINE 3+ (NEGATIVE); NITRITE URINE POSITIVE (NEGATIVE); OCCULT BLOOD URINE 3+ (NEGATIVE); PH URINE 5.5 (4.5-8.0); PROTEIN URINE 3+ (NEGATIVE)
[2020-02-25 19:38] LABS: *AMPHETAMINES SCREEN URINE NEGATIVE (NEGATIVE); *BARBITURATES SCREEN URINE NEGATIVE (NEGATIVE); *BENZODIAZEPINES SCREEN URINE NEGATIVE (NEGATIVE); *COCAINE SCREEN URINE NEGATIVE (NEGATIVE)
[2020-02-25 19:39] LABS: CANNABINOID URINE SCREEN NEGATIVE (NEGATIVE); METHADONE URINE SCREEN NEGATIVE (NEGATIVE); OPIATES URINE SCREEN PRESUMTIVE POSITIVE (NEGATIVE); PHENCYCLIDINE URINE SCREEN NEGATIVE (NEGATIVE)
[2020-02-25] MEDS ORDERED: CLONIDINE 0.1MG TABLET PO PRN (20:00)
[2020-02-25] MEDS ORDERED: ACETAMINOPHEN 325MG TABLET PO PRN (20:00)
[2020-02-25] MEDS ORDERED: GUAIFENESIN 200MG/10ML SUGAR FREE UDC PO PRN (20:00)
[2020-02-25] MEDS ORDERED: MAGNESIUM/ALUMINUM HYDROXIDE/SIMETHICONE 30ML UDC PO PRN (20:00)
[2020-02-25] MEDS ORDERED: ONDANSETRON HCL 4MG/2ML INJ IV PRN (20:00)
[2020-02-25] MEDS ORDERED: IPRATROPIUM/ALBUTEROL 0.5-3(2.5)MG/3ML NEB HHN PRN (20:00)
[2020-02-25] MEDS ORDERED: ENOXAPARIN 40MG/0.4ML SYR SUBCUT SCH (20:00)
[2020-02-25] MEDS ORDERED: DOCUSATE SODIUM 100MG CAPSULE PO PRN (20:00)
[2020-02-25] MEDS: HYDROCODONE/ACETAMINOPHEN 5/325MG TABLET PO PRN (20:32)
[2020-02-25] MEDS: ENOXAPARIN 30MG/0.3ML SYR SUBCUT SCH (22:08)
[2020-02-25 23:45] LABS: CHLORIDE 111 mEq/L (98-107)
[2020-02-26 01:30] VITALS: BP 103/57
[2020-02-26] MEDS ORDERED: PIPERACILLIN/TAZ 3.375G PREMIX 50 ML IV SCH (02:30)
[2020-02-26 04:00] VITALS: BP 109/65
[2020-02-26] MEDS: HYDROCODONE/ACETAMINOPHEN 5/325MG TABLET PO PRN ×3 (05:18→23:05)
[2020-02-26] MEDS: PIPERACILLIN/TAZOBACTAM 3.375 G in DEXT 5% WATER 100 ML IV SCH ×3 (05:33→22:12)
[2020-02-26 06:44] LABS: BASOPHILS % 1.1 % (0.0-2.0); EOSINOPHILS % 4.7 % (0.0-5.0); HEMATOCRIT. 29.4 % (36.0-48.0); HEMOGLOBIN. 9.7 g/dL (12.0-16.0); LYMPHOCYTES % 23.3 % (20.0-50.0); MEAN CORPUSCULAR HEMOGLOBIN 25.6 pg (28.0-32.0); MEAN CORPUSCULAR VOLUME 77.9 fL (81.0-99.0); MEAN PLATELET VOLUME 8.7 fl (7.4-10.4); MONOCYTES % 9.1 % (2.0-8.0); NEUTROPHILS % 61.8 % (40.0-76.0); PLATELET 191 x1000/uL (130-400); RED BLOOD CELL COUNT 3.77 mill/uL (4.2-5.4); RED CELL DISTRIBUTION WIDTH 15.2 % (11.6-14.6)
[2020-02-26 08:00] VITALS: BP 92/53
[2020-02-26] MEDS: ENOXAPARIN 30MG/0.3ML SYR SUBCUT SCH ×2 (09:00→20:45)
[2020-02-26 12:00] VITALS: BP 111/64
[2020-02-26] MEDS: OXYCODONE HCL 5MG TABLET PO PRN ×2 (15:18→20:44)
[2020-02-26 16:00] VITALS: BP 106/58
[2020-02-26 20:00] VITALS: BP 104/62
[2020-02-26] MEDS: ZOLPIDEM TARTRATE 5MG TABLET PO PRN (23:04)
[2020-02-27] VITALS: BP 106/64
[2020-02-27] MEDS: OXYCODONE HCL 5MG TABLET PO PRN ×6 (00:51→23:05)
[2020-02-27 04:00] VITALS: BP 106/54
[2020-02-27] MEDS: PIPERACILLIN/TAZOBACTAM 3.375 G in DEXT 5% WATER 100 ML IV SCH ×3 (05:31→21:05)
[2020-02-27 08:00] VITALS: BP 108/61
[2020-02-27] MEDS: ENOXAPARIN 30MG/0.3ML SYR SUBCUT SCH ×2 (08:21→20:57)
[2020-02-27 12:00] VITALS: BP 102/61
[2020-02-27] MEDS: HYDROMORPHONE HCL/PF 2MG/ML CPJ IV PRN ×2 (14:52→20:57)
[2020-02-27 16:00] VITALS: BP 120/78
[2020-02-27] MEDS ORDERED: VANCOMYCIN 1,750 MG in DEXT 5% WATER 250 ML IV NR (17:00)
[2020-02-27 20:00] VITALS: BP 101/60
[2020-02-27] MEDS: TRAZODONE HCL 50MG TABLET PO SCH (23:41)
[2020-02-27] MEDS: VANCOMYCIN 1 G PREMIX 200 ML IV SCH (23:41)
[2020-02-28] VITALS: BP 105/69
[2020-02-28] MEDS: HYDROMORPHONE HCL/PF 2MG/ML CPJ IV PRN ×4 (03:02→22:03)
[2020-02-28 04:00] VITALS: BP 100/53
[2020-02-28] MEDS: PIPERACILLIN/TAZOBACTAM 3.375 G in DEXT 5% WATER 100 ML IV SCH (05:03)
[2020-02-28] MEDS: OXYCODONE HCL 5MG TABLET PO PRN ×3 (05:04→20:10)
[2020-02-28 07:58] LABS: EOSINOPHILS % 3.8 % (0.0-5.0); HEMATOCRIT. 31.6 % (36.0-48.0); HEMOGLOBIN. 10.4 g/dL (12.0-16.0); LYMPHOCYTES % 21.2 % (20.0-50.0); MEAN CORPUSCULAR HEMOGLOBIN 25.9 pg (28.0-32.0); MEAN CORPUSCULAR VOLUME 78.6 fL (81.0-99.0); MEAN PLATELET VOLUME 8.6 fl (7.4-10.4); MONOCYTES % 8.7 % (2.0-8.0); NEUTROPHILS % 65.3 % (40.0-76.0); PLATELET 236 x1000/uL (130-400); RED BLOOD CELL COUNT 4.02 mill/uL (4.2-5.4); RED CELL DISTRIBUTION WIDTH 15.5 % (11.6-14.6)
[2020-02-28 08:00] VITALS: BP 112/54
[2020-02-28 08:08] LABS: CHLORIDE 105 mEq/L (98-107)
[2020-02-28] MEDS: ENOXAPARIN 30MG/0.3ML SYR SUBCUT SCH ×2 (09:08→22:05)
[2020-02-28] MEDS: VANCOMYCIN 1 G PREMIX 200 ML IV SCH ×2 (09:08→23:09)
[2020-02-28 12:00] VITALS: BP 100/62
[2020-02-28] MEDS: CEFTRIAXONE 1,000 MG in DEXTROSE 5% WATER 50 ML IV SCH (15:28)
[2020-02-28 16:00] VITALS: BP 100/57
[2020-02-28 20:00] VITALS: BP 124/62
[2020-02-28] MEDS: TRAZODONE HCL 50MG TABLET PO SCH (22:04)
[2020-02-29] VITALS: BP 109/56
[2020-02-29 04:00] VITALS: BP 99/53
[2020-02-29 07:27] LABS: BASOPHILS % 0.9 % (0.0-2.0); EOSINOPHILS % 4.4 % (0.0-5.0); HEMATOCRIT. 34.6 % (36.0-48.0); HEMOGLOBIN. 11.3 g/dL (12.0-16.0); LYMPHOCYTES % 24.8 % (20.0-50.0); MEAN CORPUSCULAR HEMOGLOBIN 25.6 pg (28.0-32.0); MEAN CORPUSCULAR VOLUME 78.5 fL (81.0-99.0); MEAN PLATELET VOLUME 8.3 fl (7.4-10.4); MONOCYTES % 8.6 % (2.0-8.0); NEUTROPHILS % 61.3 % (40.0-76.0); PLATELET 260 x1000/uL (130-400); RED BLOOD CELL COUNT 4.41 mill/uL (4.2-5.4); RED CELL DISTRIBUTION WIDTH 15.2 % (11.6-14.6)
[2020-02-29 07:54] LABS: CHLORIDE 105 mEq/L (98-107)
[2020-02-29 08:00] VITALS: BP 121/55
[2020-02-29] MEDS: ENOXAPARIN 30MG/0.3ML SYR SUBCUT SCH ×2 (08:34→21:59)
[2020-02-29] MEDS ORDERED: BACITRACIN 50,000 UNITS/VIAL ONE (09:24)
[2020-02-29] MEDS ORDERED: NORMAL SALINE 0.9% 10 ML SYR ONE (09:24)
[2020-02-29] MEDS ORDERED: BUPIVACAINE HCL/PF 0.5% (5MG/ML) 10ML ONE (09:24)
[2020-02-29] MEDS ORDERED: LIDOCAINE HCL 1% 20ML VIAL (Pyxis) INJ ONE (09:24)
[2020-02-29] MEDS: HYDROMORPHONE HCL/PF 2MG/ML CPJ IV PRN (09:36)
[2020-02-29] MEDS: VANCOMYCIN 1 G PREMIX 200 ML IV SCH ×2 (11:16→23:31)
[2020-02-29 12:00] VITALS: BP 101/65
[2020-02-29] MEDS ORDERED: FENTANYL CITRATE/PF 50MCG/ML 2ML VIAL ONE ×2 (12:15→12:28)
[2020-02-29] MEDS ORDERED: MIDAZOLAM HCL 2 MG/2 ML VIAL ONE ×2 (12:15→12:28)
[2020-02-29] MEDS ORDERED: PROPOFOL 200MG/20ML VIAL IV ONE (12:15)
[2020-02-29] MEDS ORDERED: DEXAMETHASONE 4MG/ML 1ML VIAL ONE (12:28)
[2020-02-29] MEDS ORDERED: ONDANSETRON HCL 4MG/2ML INJ ONE (12:28)
[2020-02-29] MEDS ORDERED: ONDANSETRON HCL 4MG/2ML INJ IV PRN (13:00)
[2020-02-29] MEDS ORDERED: MEPERIDINE HCL/PF 25MG/ML CPJ IV PRN (13:00)
[2020-02-29] MEDS ORDERED: HYDROMORPHONE HCL/PF 2MG/ML CPJ IV PRN (13:00)
[2020-02-29] MEDS ORDERED: LABETALOL 5MG/ML SYR 20 MG/4 ML SYRINGE IV PRN (13:00)
[2020-02-29] MEDS ORDERED: ONDANSETRON INJ IV PRN (13:30)
[2020-02-29] MEDS ORDERED: HYDROMORPHONE PCA 10MG/50ML IV PRN (13:30)
[2020-02-29] MEDS ORDERED: NALOXONE INJ IV PRN (13:30)
[2020-02-29 16:00] VITALS: BP 103/43
[2020-02-29] MEDS: CEFTRIAXONE 1,000 MG in DEXTROSE 5% WATER 50 ML IV SCH (17:33)
[2020-02-29] MEDS: DIPHENHYDRAMINE INJ IV PRN ×2 (17:34→21:59)
[2020-02-29 20:00] VITALS: BP 103/58
[2020-02-29] MEDS: TRAZODONE HCL 50MG TABLET PO SCH (22:00)
[2020-02-29] MEDS ORDERED: HYDROCODONE/ACETAMINOPHEN 5/325MG TABLET PO PRN (22:30)
[2020-02-29] MEDS: ZOLPIDEM TARTRATE 5MG TABLET PO PRN (23:31)
[2020-03-01] VITALS: BP 96/51
[2020-03-01] MEDS: DIPHENHYDRAMINE INJ IV PRN ×3 (01:38→09:22)
[2020-03-01 04:00] VITALS: BP 94/54
[2020-03-01 07:30] LABS: BASOPHILS % 1.4 % (0.0-2.0); EOSINOPHILS % 4.3 % (0.0-5.0); HEMATOCRIT. 33.5 % (36.0-48.0); HEMOGLOBIN. 10.9 g/dL (12.0-16.0); LYMPHOCYTES % 22.3 % (20.0-50.0); MEAN CORPUSCULAR HEMOGLOBIN 25.7 pg (28.0-32.0); MEAN CORPUSCULAR VOLUME 79.1 fL (81.0-99.0); MEAN PLATELET VOLUME 8.6 fl (7.4-10.4); MONOCYTES % 9.6 % (2.0-8.0); NEUTROPHILS % 62.4 % (40.0-76.0); PLATELET 244 x1000/uL (130-400); RED BLOOD CELL COUNT 4.23 mill/uL (4.2-5.4); RED CELL DISTRIBUTION WIDTH 15.5 % (11.6-14.6)
[2020-03-01 08:00] VITALS: BP 109/58
[2020-03-01 08:04] LABS: CHLORIDE 109 mEq/L (98-107)
[2020-03-01] MEDS: ENOXAPARIN 30MG/0.3ML SYR SUBCUT SCH (09:23)
[2020-03-01] MEDS: VANCOMYCIN 1 G PREMIX 200 ML IV SCH (11:28)
[2020-03-01 12:00] VITALS: BP 111/65
[2020-03-01 16:00] VITALS: BP 114/68
[2020-03-01] MEDS: CEFTRIAXONE 1,000 MG in DEXTROSE 5% WATER 50 ML IV SCH (16:00)
[2020-03-01 18:30] VITALS: BP 135/78
== END 2020-03-01 20:30 | disposition home health service (06) | DRG 710 ==
LOC: ER 16:21 → EDBEDREQ 18:55 → EDBEDREQSVC 18:55 → EDBEDREQTM 22:07 → EDBEDREQSVC 22:07 → 5WST 02-26 01:36
PROVIDERS: ADMIT Internal Medicine; ATTEND Internal Medicine
PROC: 0QBL0ZZ Excision of Right Tarsal, Open Approach (ICD-10-PCS; principal; 2020-02-29)
DX: A41.89 Other specified sepsis (principal); L89.614 Pressure ulcer of right heel, stage 4; I96 Gangrene, not elsewhere classified; N39.0 Urinary tract infection, site not specified; E87.6 Hypokalemia; G82.20 Paraplegia, unspecified; T68.XXXA Hypothermia, initial encounter; F19.10 Other psychoactive substance abuse, uncomplicated; Z20.828 Contact with and (suspected) exposure to other viral communicable diseases; L89.620 Pressure ulcer of left heel, unstageable; M20.11 Hallux valgus (acquired), right foot; G89.29 Other chronic pain; I10 Essential (primary) hypertension; Z74.01 Bed confinement status; Z78.0 Asymptomatic menopausal state; Z98.891 History of uterine scar from previous surgery; Z79.01 Long term (current) use of anticoagulants; Z79.899 Other long term (current) drug therapy
CPT/HCPCS: 36415; 73630; 80048; 80053; 80061; 80202; 80305; 81003; 84443; 84703; 85025; 87070; 87075; 87077; 87186; 88311; 93005; 93923; 93970; 99285; J0696; J1100; J1170; J1200; J1650; J2250; J2270; J2405; J2543; J2704; J3010; J3370; J3490; J7030; J7060; U0003-CS

== ENCOUNTER 2024-08-06 14:36 | Inpatient (IN) | payer MEDICAID ==
[~2024-08-06] VITALS: Ht 162.6 cm; Wt 67.6 kg
[~2024-08-06 14:36] MED LIST changes: -CLON2TAB21 PO; -DOCU-272 PO; +DOCU-422 MT; +FURO-152 PO; +GABA-290 MT; -GABA800T97 PO; +IBUP-2028 MT; +OXYBUTYNIN 10 MG PO; -OXYC-93 MT; +OXYC10TA48 MT; -OXYC20TA71 PO; +RIVA20TA MT; -RIVA20TA PO; +TRAZ-252 MT
[2024-08-06 15:22] LABS: CLARITY URINE CLOUDY (CLEAR); COLOR URINE YELLOW (YELLOW); GLUCOSE URINE NEGATIVE (NEGATIVE); KETONES URINE NEGATIVE (NEGATIVE); LEUKOCYTE ESTERASE URINE 3+ (NEGATIVE); NITRITE URINE POSITIVE (NEGATIVE); OCCULT BLOOD URINE 3+ (NEGATIVE); PH URINE 7.5 (4.5-8.0); PROTEIN URINE 1+ (NEGATIVE); SPECIFIC GRAVITY URINE 1.005 (1.005-1.030); UROBILINOGEN URINE 0.2 E.U./dL (0.2-1.0)
[2024-08-06] MEDS ORDERED: CEFEPIME 1GM IN DEXT 5% 50ML IV ONE (15:30)
[2024-08-06 15:36] LABS: *AMPHETAMINES SCREEN URINE NEGATIVE (NEGATIVE); *BARBITURATES SCREEN URINE NEGATIVE (NEGATIVE); *BENZODIAZEPINES SCREEN URINE PRESUMPTIVE POSITIVE (NEGATIVE)
[2024-08-06 15:37] LABS: *COCAINE SCREEN URINE NEGATIVE (NEGATIVE); CANNABINOID URINE SCREEN NEGATIVE (NEGATIVE); ECSTASY MDMA SCREEN URINE NEGATIVE (NEGATIVE); METHADONE URINE SCREEN NEGATIVE (NEGATIVE); OPIATES URINE SCREEN NEGATIVE (NEGATIVE); PHENCYCLIDINE URINE SCREEN NEGATIVE (NEGATIVE)
[2024-08-06] MEDS: VANCOMYCIN 1G PREMIX 200 ML IV ONE (15:44)
[2024-08-06 16:13] LABS: BASOPHILS % 0.9 % (0.0-2.0); CHLORIDE 105 mEq/L (98-107); EOSINOPHILS % 4.4 % (0.0-5.0); HEMATOCRIT. 32.4 % (36.0-48.0); HEMOGLOBIN. 9.2 g/dL (12.0-16.0); LYMPHOCYTES % 12.1 % (20.0-50.0); MEAN CORPUSCULAR HEMOGLOBIN 18.1 pg (28.0-32.0); MEAN CORPUSCULAR HGB CONC 28.4 g/dL (31.0-37.0); MEAN CORPUSCULAR VOLUME 63.8 fL (81.0-99.0); MEAN PLATELET VOLUME 8.5 fl (7.4-10.4); MONOCYTES % 6.7 % (2.0-8.0); NEUTROPHILS % 75.9 % (40.0-76.0); PLATELET 356 x1000/uL (130-400); POTASSIUM 3.2 mEq/L (3.5-5.1); RED BLOOD CELL COUNT 5.07 mill/uL (4.2-5.4); RED CELL DISTRIBUTION WIDTH 19.1 % (11.6-14.6); SODIUM 143 mEq/L (136-145); WHITE BLOOD COUNT 5.2 x1000/uL (4.5-11.0)
[2024-08-06 16:14] LABS: BACTERIA URINE 2+; SQUAMOUS EPITHELIAL CELL URINE 1+ /lpf (RARE/1+)
[2024-08-06 16:14] LABS: CALCIUM 10.2 mg/dL (8.7-10.4); CARBON DIOXIDE 28 mEq/L (21-32)
[2024-08-06 16:15] LABS: INR 1.5; PROTHROMBIN TIME 15.1 sec (9.6-11.0)
[2024-08-06 16:16] LABS: ADD RBC MORPHOLOGY YES; DIFFERENTIAL COMMENT 1
[2024-08-06 16:19] LABS: CREATININE 0.5 mg/dL (0.6-1.0); GLUCOSE 94 mg/dL (70-105); UREA NITROGEN BLOOD 10 mg/dL (9-23)
[2024-08-06 16:21] LABS: ALANINE AMINOTRANSFERASE < 7 IU/L (10-49); ALBUMIN 3.9 g/dL (3.2-4.8); ASPARTATE AMINOTRANSFERASE 15 IU/L (<34); BILIRUBIN TOTAL 0.2 mg/dL (0.1-1.0)
[2024-08-06 16:22] LABS: BILIRUBIN DIRECT < 0.1 mg/dL (<=3.0); TROPONIN I HIGH SENSITIVITY < 4 ng/L (3.0-34)
[2024-08-06 16:31] LABS: HYPOCHROMASIA 3+; MICROCYTOSIS 3+; PLATELET ESTIMATE NORMAL
[2024-08-06 16:32] LABS: ANISOCYTOSIS 2+
[2024-08-06] MEDS: CEFEPIME 1GM/50ML 50 ML IV SCH (17:24)
[2024-08-06 20:00] VITALS: BP 101/54; PULSE 61; RESP 16; TEMP 36.3; O2SAT 100
[2024-08-07] VITALS: BP 96/49; PULSE 62; RESP 16; TEMP 36.1; O2SAT 100
[2024-08-07] MEDS: DEXT 5%/0.9% NACL 1,000 ML IV SCH (00:15)
[2024-08-07] MEDS: CEFTRIAXONE 1GM/50ML 50 ML IV SCH (03:33)
[2024-08-07 04:00] VITALS: BP 102/66; PULSE 74; RESP 18; TEMP 36.2; O2SAT 99
[2024-08-07 08:00] VITALS: BP 89/46; PULSE 100; RESP 22; TEMP 37.7; O2SAT 100
[2024-08-07 08:20] LABS: BASOPHILS % 1.1 % (0.0-2.0); EOSINOPHILS % 3.9 % (0.0-5.0); HEMATOCRIT. 23.7 % (36.0-48.0); HEMOGLOBIN. 7.1 g/dL (12.0-16.0); LYMPHOCYTES % 17.2 % (20.0-50.0); MEAN CORPUSCULAR VOLUME 63.3 fL (81.0-99.0); MEAN PLATELET VOLUME 8.4 fl (7.4-10.4); MONOCYTES % 8.1 % (2.0-8.0); NEUTROPHILS % 69.7 % (40.0-76.0); PLATELET 317 x1000/uL (130-400); RED BLOOD CELL COUNT 3.75 mill/uL (4.2-5.4); RED CELL DISTRIBUTION WIDTH 18.8 % (11.6-14.6); WHITE BLOOD COUNT 4.1 x1000/uL (4.5-11.0)
[2024-08-07 08:24] LABS: CHLORIDE 111 mEq/L (98-107); POTASSIUM 3.4 mEq/L (3.5-5.1); SODIUM 147 mEq/L (136-145)
[2024-08-07 08:26] LABS: CALCIUM 9.3 mg/dL (8.7-10.4); CARBON DIOXIDE 27 mEq/L (21-32)
[2024-08-07 08:31] LABS: CREATININE 0.4 mg/dL (0.6-1.0); GLUCOSE 114 mg/dL (70-105); UREA NITROGEN BLOOD 8 mg/dL (9-23)
[2024-08-07 08:32] LABS: ALANINE AMINOTRANSFERASE < 7 IU/L (10-49)
[2024-08-07 08:33] LABS: ALBUMIN 3.1 g/dL (3.2-4.8); ASPARTATE AMINOTRANSFERASE 8 IU/L (<34); BILIRUBIN TOTAL 0.2 mg/dL (0.1-1.0); PROTEIN TOTAL 6.4 g/dL (6.0-8.3)
[2024-08-07 08:49] LABS: DIFFERENTIAL COMMENT 1
[2024-08-07 09:14] VITALS: BP 94/47; PULSE 82; O2SAT 100
[2024-08-07 10:56] LABS: IRON 13 ug/dL (50-170)
[2024-08-07 10:57] LABS: LDL CHOLESTEROL 70 mg/dL (5-100); TRIGLYCERIDE 65 mg/dL (0-150)
[2024-08-07 10:58] LABS: CHOLESTEROL 122 mg/dL (<200); HDL CHOLESTEROL 32 mg/dL (>65)
[2024-08-07 10:59] LABS: TOTAL IRON BINDING CAPACITY 298 ug/dl (250-425)
[2024-08-07] MEDS: DEXT 5%/0.45% NACL 1000ML 1,000 ML IV SCH (11:04)
[2024-08-07 11:54] LABS: FERRITIN 20 ng/mL (10-291); FOLIC ACID (FOLATE) SERUM > 20.00 ng/mL (>5.38)
[2024-08-07 12:00] VITALS: BP 99/55; PULSE 85; RESP 20; TEMP 37.7; O2SAT 99
[2024-08-07 12:19] LABS: VITAMIN B12 SERUM 942 pg/mL (211-911)
[2024-08-07 12:32] LABS: AMMONIA 22 uMol/L (<32)
[2024-08-07] MEDS: LORAZEPAM 2MG/ML INJ IV NR (15:35)
[2024-08-07] MEDS: LORAZEPAM 2MG/ML INJ IV PRN (15:57)
[2024-08-07 17:51] VITALS: BP 96/50; PULSE 76; RESP 16; TEMP 36.5; O2SAT 98
[2024-08-08 08:00] VITALS: BP 98/58; PULSE 81; RESP 17; TEMP 36; O2SAT 99
[2024-08-08 08:45] VITALS: BP 90/54; PULSE 76; RESP 10; TEMP 36.6
[2024-08-08 12:00] VITALS: BP 90/61; PULSE 77; RESP 17; TEMP 36.5; O2SAT 98
[2024-08-08] MEDS ORDERED: HYDROCODONE/ACETAMINOPHEN 5/325MG TABLET PO PRN (12:45)
[2024-08-08] MEDS ORDERED: NALOXONE HCL 0.4MG/ML VIAL IV PRN (13:15)
[2024-08-08] MEDS: HYDROCODONE/ACETAMINOPHEN 10/325MG TABLET PO PRN (13:17)
[2024-08-08] MEDS ORDERED: RIVA20TA MT (13:39)
[2024-08-08] MEDS ORDERED: DIAZ2TAB3 MT (13:39)
[2024-08-08] MEDS ORDERED: FURO20TA4 MT (13:39)
[2024-08-08] MEDS ORDERED: OXYB-52 PO (13:39)
[2024-08-08] MEDS: POTASSIUM CHLORIDE 20MEQ TABLET SR PO NR (13:55)
[2024-08-08] MEDS: IRON SUCROSE COMPLEX 100 MG/5 ML ML IV NR (13:55)
[2024-08-08] MEDS: POTASSIUM CHLORIDE 20MEQ TABLET SR PO SCH (13:56)
[2024-08-08] MEDS: OXYCODONE HCL/ACETAMINOPHEN 5/325MG TABLET PO PRN (17:13)
[2024-08-08 18:23] LABS: BASOPHILS % 1.4 % (0.0-2.0); DIFFERENTIAL COMMENT 1; EOSINOPHILS % 1.7 % (0.0-5.0); HEMATOCRIT. 25.3 % (36.0-48.0); HEMOGLOBIN. 7.4 g/dL (12.0-16.0); LYMPHOCYTES % 25.8 % (20.0-50.0); MEAN CORPUSCULAR HEMOGLOBIN 18.5 pg (28.0-32.0); MEAN CORPUSCULAR HGB CONC 29.3 g/dL (31.0-37.0); MEAN CORPUSCULAR VOLUME 63.1 fL (81.0-99.0); MEAN PLATELET VOLUME 8.1 fl (7.4-10.4); MONOCYTES % 11.9 % (2.0-8.0); NEUTROPHILS % 59.2 % (40.0-76.0); PLATELET 348 x1000/uL (130-400); RED BLOOD CELL COUNT 4.01 mill/uL (4.2-5.4); RED CELL DISTRIBUTION WIDTH 19.5 % (11.6-14.6)
[2024-08-08 18:35] LABS: CHLORIDE 108 mEq/L (98-107); POTASSIUM 3.5 mEq/L (3.5-5.1); SODIUM 141 mEq/L (136-145)
[2024-08-08 18:36] LABS: CALCIUM 9.1 mg/dL (8.7-10.4); CARBON DIOXIDE 26 mEq/L (21-32)
[2024-08-08 18:41] LABS: CREATININE 0.4 mg/dL (0.6-1.0); GLUCOSE 115 mg/dL (70-105); UREA NITROGEN BLOOD 7 mg/dL (9-23)
[2024-08-08 19:22] LABS: INR 1.2; PROTHROMBIN TIME 12.4 sec (9.6-11.0)
[2024-08-08] MEDS: GABAPENTIN 300MG CAPSULE PO SCH (22:23)
[2024-08-08] MEDS: BACLOFEN 10MG TABLET PO SCH (22:24)
[2024-08-09] MEDS: TRAZODONE HCL 50MG TABLET PO SCH (01:10)
[2024-08-09 08:00] VITALS: BP 98/62; PULSE 84; RESP 16; TEMP 36.7; O2SAT 99
[2024-08-09 13:19] VITALS: RESP 16
[2024-08-09 15:51] VITALS: BP 118/73; PULSE 81; TEMP 98.4; O2SAT 100
[2024-08-09] MEDS ORDERED: RIVAROXABAN 20 MG TABLET PO SCH (17:00)
== END 2024-08-09 16:20 | disposition home health service (06) | DRG 52 ==
LOC: ER 14:36 → 5WST 16:17
PROVIDERS: ADMIT Internal Medicine; ATTEND Internal Medicine
DX: G92.8 Other toxic encephalopathy (principal); D68.9 Coagulation defect, unspecified; E87.0 Hyperosmolality and hypernatremia; L89.159 Pressure ulcer of sacral region, unspecified stage; G82.20 Paraplegia, unspecified; L89.619 Pressure ulcer of right heel, unspecified stage; L89.629 Pressure ulcer of left heel, unspecified stage; F12.90 Cannabis use, unspecified, uncomplicated; N39.0 Urinary tract infection, site not specified; D50.9 Iron deficiency anemia, unspecified; E87.6 Hypokalemia; M21.372 Foot drop, left foot; M21.371 Foot drop, right foot; I10 Essential (primary) hypertension; Z74.01 Bed confinement status; Z99.3 Dependence on wheelchair
CPT/HCPCS: 36415; 70551; 71045; 74181; 80048; 80053; 80061; 80076; 80305; 81003; 82140; 82607; 82728; 82746; 82962; 83036; 83540; 83550; 83605; 83735; 84145; 84484; 85025; 86850; 86900; 92610; 93005; 93306; 93970; 99291; A4606; J0692; J0696; J2060; J3370